=== PATIENT | female | born 1945 | race Caucasian/White ===

== ENCOUNTER 2018-01-15 05:21 | Inpatient (IN) | payer OTHER, MEDICARE ==
[~2018-01-15] VITALS: Ht 167.6 cm; Wt 65.7 kg
[~2018-01-15 05:21] MED LIST: ADVA250A INH; ALBU0.63 NEB; FENO160T PO; LISI40TA PO; LOVA40TA PO; METO1TAB43 PO; OXYGENDME NAS.CANULA; PHILCAP2 PO; TEMA30CA PO; WHEA1POW9
[2018-01-15] MEDS ORDERED: LACTATED RINGER'S 1000 ML IV PRN (06:00)
[2018-01-15] MEDS ORDERED: VANCOMYCIN 1 GM/200 ML PREMIX ON-CALL IV SCH (06:00)
[2018-01-15] MEDS ORDERED: SODIUM CHLORID 0.9% 500 ML IV PRN (06:00)
[2018-01-15] MEDS ORDERED: INSULIN HUMAN REGULAR 1,000 UNITS/10 ML VIAL SQ PRN (06:00)
[2018-01-15] MEDS ORDERED: ceFAZolin 2 GM PREMIX 50 ML IV SCH (06:00)
[2018-01-15] MEDS ORDERED: POVIDONE IODINE 5% (ANTISEPSIS KIT) 4 APPLICATIONS EACH NARE PRN (06:00)
[2018-01-15] MEDS ORDERED: CHLORHEXIDINE GLUCONATE 4% SOLN 120 ML BTL TOPICAL SCH (06:00)
[2018-01-15] MEDS ORDERED: CHLORHEXIDINE GLUCONATE 2 % 1 PACK (2 CLOTHS) TOPICAL PRN (06:00)
[2018-01-15] MEDS ORDERED: ceFAZolin INJ 1,000 MG VIAL ONE (06:25)
[2018-01-15] MEDS ORDERED: BUPIVACAINE PF 0.75% DEX-WATER INJ 2 ML AMP ONE (07:12)
--- NOTE | 2018-01-15 07:27 | MH ---
cc: Melissa Moss MD, J Richard R MD DATE OF ADMISSION: 01/15/2018 DATE OF ADMISSION FOR SURGERY: 01/15/2018 ADMITTING DIAGNOSIS: Osteoarthritic degeneration, left hip, now being admitted for a left total hip arthroplasty. HISTORY OF PRESENT ILLNESS A pleasant 72-year-old female is being admitted today for left total hip arthroplasty with severe painful osteoarthritic degeneration, left hip. PAST MEDICAL HISTORY: She recently underwent radiation for lung cancer. Otherwise, the patient has a history of anxiety, chronic kidney disease, stage II, COPD, hypoxemia. CURRENT MEDICATIONS: 1. Temazepam. 2. Zofran. 3. Metoprolol. 4. Lovastatin. 5. Lisinopril. 6. Fenofibrate 7. Effexor. PAST SURGICAL HISTORY: Right total knee arthroplasty. REVIEW OF SYSTEMS: Noncontributory. FAMILY HISTORY: Noncontributory. She was a smoker, nondrinker. ALLERGIES: NO KNOWN ALLERGIES PHYSICAL EXAMINATION: GENERAL: We find a 72-year-old female, well developed, well nourished, alert and oriented x3 complaining of pain in her left hip. VITAL SIGNS: Blood pressure 126/70, pulse 88 and regular, respirations 18, temp 98.2, pulse ox is 97% on room air. HEENT: Eyes PERRLA. EOMI. Ears, nose, mouth clear. NECK: Supple. LUNGS: Clear. HEART: Regular rate. ABDOMEN: Soft, positive bowel sounds, nontender. EXTREMITIES: Reveal the left hip to have decreased range of motion. She is neurovascularly intact to her toes. She is tender under her left rib cage where she states she was coughing. X-rays were done which did not reveal a fracture. IMPRESSION: Severe osteoarthritic degeneration, left hip. PLAN: Admission for left total hip arthroplasty today. The patient was given prescription for postoperative pain and anticoagulation control in the office. Plans to go into rehab after surgical stay in the hospital. MD JOSE ALFREDO Vieira//bridgett , 04:47 PM , 05:05 PM
[2018-01-15] MEDS ORDERED: TEMAZEPAM 15 MG CAP PO PRN ×2 (07:30)
[2018-01-15] MEDS ORDERED: ONDANSETRON HCL 4 MG/2 ML VIAL IVP PRN (07:30)
[2018-01-15] MEDS ORDERED: WHEAT DEXTRIN PRN (07:30)
[2018-01-15] MEDS ORDERED: ACETAMINOPHEN/HYDROcodone 325 MG/7.5 MG TAB PO PRN (07:30)
[2018-01-15] MEDS ORDERED: MISCELLANEOUS NURSING INFORMATION XX PRN (07:30)
[2018-01-15] MEDS ORDERED: TRANEXAMIC ACID IV SCH ×2 (07:30→10:30)
[2018-01-15] MEDS ORDERED: ACETAMINOPHEN 325 MG TAB PO PRN (07:30)
[2018-01-15] MEDS ORDERED: MAGNESIUM HYDROXIDE SUSP 30 ML CUP PO PRN (07:30)
[2018-01-15] MEDS ORDERED: MORPHINE SULFATE 8 MG/ML INJ IV PUSH PRN (07:30)
[2018-01-15] MEDS ORDERED: BISACODYL 10 MG SUPP RECTAL PRN (07:30)
[2018-01-15] MEDS ORDERED: RESP: ALBUTEROL 0.63 MG/3 ML NEB (PRN) NEB (07:30)
[2018-01-15] MEDS ORDERED: BUPIVACAINE LIPOSO PF 1.3% INJ 20 ML, BUPIVACAINE PF 0.25% INJ 20 ML in SODIUM CHLORIDE... P-ARTICULR SCH (07:30)
[2018-01-15] MEDS ORDERED: TRANEXAMIC ACID INJ 0 MG in SODIUM CHLORIDE 0.9% INJ 100 ML IV SCH (07:30)
[2018-01-15] MEDS ORDERED: SODIUM CHLORIDE 0.9% IV SCH ×2 (07:30→10:30)
[2018-01-15] MEDS ORDERED: NALOXONE HCL 0.4 MG/ML AMP IV PUSH PRN (07:30)
[2018-01-15] MEDS ORDERED: PROPOFOL 500 MG/50 ML INJ 50 ML ONE (07:33)
[2018-01-15] MEDS ORDERED: WALKER WHEELS/F1 MIS (07:35)
--- NOTE | 2018-01-15 07:35 | HHI.FF ---
Face to Face Verification Diagnosis: (1) Status post total hip replacement, left Physical Therapy Gait training Hip: Total hip, Protocol: Left, Posterior hip precautions, Abduction pillow while in bed, Progress to weight bearing Canvas Knee Splint: When in bed & 2 pillows btw thighs Nursing RN: 3 days/week x 2 weeks I have seen patient Bing Finnegan on 01/15/18. My clinical findings support the need for the requested home health care services because: Limited ability to care for self High risk of falls I certify that my clinical findings support that this patient is homebound because: Unsteady gait/balance Melissa Moss MD Jan 15, 2018 07:35
[2018-01-15] MEDS ORDERED: ADJUSTABLE COMM1 MIS (07:36)
[2018-01-15] MEDS ORDERED: PROBIOTIC PRODUCT PO SCH (09:00)
[2018-01-15] MEDS ORDERED: cloNIDine HCL 0.1 MG TAB PO PRN (09:15)
[2018-01-15] MEDS ORDERED: Post-op Orders (for Pharmacy) XX ONE (09:55)
[2018-01-15] MEDS ORDERED: DO NOT ADM ANY ANTICOAGULANT DRUGS PRN (09:55)
--- NOTE | 2018-01-15 09:59 | MP ---
cc: Melissa Moss MD DATE OF OPERATION: DATE OF SURGERY: 01/15/2018 PREOPERATIVE DIAGNOSIS: Osteoarthritic degeneration, left hip. POSTOPERATIVE DIAGNOSIS: Osteoarthritic degeneration, left hip. SURGERY PERFORMED: Left total hip arthroplasty using Aesculap components, size 13 femur with standard neck and size 36 short ceramic head with a 36 E-liner, 52 cup and no cement utilized. SURGEON: Saulo Moss MD CHILD AND FAMILY THERAPIST(S): NEETA Aguero. ANESTHESIA: Spinal and 60 mL of Exparel for extra pain control. OPERATIVE PROCEDURE: The patient was brought to the Operating Room, where after successful induction of spinal anesthesia was placed on the operating room table in the right lateral decubitus position. The left hip, thigh and leg were prepped and draped in the usual manner. A posterolateral approach was then utilized by making an incision over the proximal portion of the femur lateral aspect, carried across the greater trochanter, carried posterior in a curved incision toward the buttock. The incision was carried down through the subcutaneous tissue, through the fibers of the tensor fascia live and gluteus lopez to expose the greater trochanteric bursa. This was then removed by sharp and blunt dissection. The hip was then internally rotated to expose the insertions of the short external rotators of the hip and were incised at their insertion into the greater trochanter and reflected posterior to protect the sciatic nerve. These were held with a Charnley retractor to better visualize the hip joint. The capsule was identified and removed by sharp dissection. The hip was then dislocated by internal rotation and flexion of the hip. The femoral calcar was then measured using the trial components for the appropriate length cut of the neck using an oscillating saw. After the cut was made the head was removed. The acetabulum was then approached and measured, the acetabulum reamed with the acetabular reamers. Next, the femoral calcar was approached by first inserting a canal finder followed by rigid reamers, followed by a cookie-cutter to the appropriate size, in this case being a #15. The broach was left in place and a planer used to plane the calcar to a smooth finish. The broach was then removed. The trial components were then inserted into place, the hip reduced, found to track smoothly with no evidence of subluxation or dislocation. All trial components were removed. The wound was irrigated copiously with antibiotic solution and Water Pik. The actual components were then inserted and impacted into place using Aesculap components, size 13 femur with standard neck and size 36 short ceramic head with a 36 E-liner, 52 cup and no cement utilized. The hip was reduced, found to track smoothly with no evidence of subluxation or dislocation. 60 cc of the mixture of Exparel, normal saline and 0.25% Marcaine plain were injected around the anterior hip joint, away from the sciatic nerve which was identified and protected throughout the procedure. The wound was irrigated copiously with antibiotic solution, meticulous hemostasis achieved. The capsule was then approximated using interrupted #1 Vicryl suture. The deep fascia was approximated with a running #2 Quill, the subcutaneous tissue approximated using interrupted and running 2-0 and 4-0 Monocryl suture and Prineo dressing applied to the wound followed by abduction pillow, brace and knee immobilizer. Estimated blood loss was 300 mL. No drain utilized. Sponge and suture counts were correct. The patient tolerated the procedure well and left the Operating Room in satisfactory condition. NEETA Aguero, was present during the entire procedure to include patient positioning and the procedure. The medical necessity of the nurse practitioner cutter first was indicated in this case due to the surgical complexity of the case itself and during the surgical case the surgical dressing maker was working at the back table while my surgical endoscopist NEETA was directly assisting me. MD JOSE ALFREDO Vieira/ANDRE , 09:34 AM , 09:57 AM
[2018-01-15] MEDS ORDERED: MIDAZOLAM HCL 2 MG/2 ML VIAL ONE (10:02)
[2018-01-15] MEDS ORDERED: *RESP: ALBUTEROL 2.5 MG/3 ML NEB (PRN) PERIprocedural Use ONLY NEB ONE (10:09)
[2018-01-15] MEDS ORDERED: *MEPERIDINE 25 MG INJ VIAL PERIprocedural Use ONLY ONE (10:20)
[2018-01-15] MEDS: LACTATED RINGER'S 1000 ML INJ 1,000 ML IV SCH ×2 (11:00→20:38)
--- NOTE | 2018-01-15 11:03 | RADRPT ---
EXAM DATE/TIME: 01/15/2018 10:11 [facility] COMPARISON: No previous studies available for comparison. INDICATIONS : Post op left hip surgery. MEDICAL HISTORY : None. SURGICAL HISTORY : None. ENCOUNTER: Initial ACUITY: 1 day PAIN SCORE: Non-responsive. LOCATION: Left hip FINDINGS: The patient is status post a total hip arthroplasty with a bipolar prosthesis. Prosthesis is well-sea frank. Alignment is anatomic. A fracture is not appreciated. CONCLUSION: Anatomic alignment. Adeel Steele MD FACR Board Certified Radiologist. This report was verified electronically.
--- NOTE | 2018-01-15 11:35 | HHI.PR ---
Immediate Post Op Note Procedure Date: Jan 15, 2018 Pre Op Diagnosis: Osteoarthritic degeneration, left hip Post Op Diagnosis: Osteoarthritic degeneration, left hip Surgeon: Saulo Moss MD Ed Physicians(s): Violeta SANTACRUZ Procedure: Left Total Hip Arthroplasty Complications: none Specimen(s) removed: Left femoral head Estimated blood loss: 300cc Anesthesia: General Drains: None IVF Urinary Output (mLs): 0 (No carrillo) Tourniquet time (min at mmHg) none Patient to: PACU Patient Condition: Good Implant/Devices: SEE IMPLANT LOG (if applicable) Date/Time of Procedure: SEE SURGICAL CARE RECORD Violeta Valdez Jan 15, 2018 11:35
[2018-01-15] MEDS ORDERED: PHENYLEPHRINE HCL 10 MG/ML VIAL IV ONE (12:00)
[2018-01-15] MEDS ORDERED: LACTATED RINGER'S 1000 ML INJ 1,000 ML IV ONE (12:00)
[2018-01-15] MEDS ORDERED: PHENYLEPH/NS 1000 MCG/10 ML SYR IV ONE (12:00)
[2018-01-15] MEDS ORDERED: NORMOSOL R INJ 1,000 ML IV ONE (12:00)
[2018-01-15] MEDS ORDERED: PROPOFOL 200 MG/20 ML AMP IV ONE (12:00)
[2018-01-15] MEDS ORDERED: LIDOCAINE HCL 1% PF 5 ML SYRINGE OTHER ONE (12:00)
[2018-01-15 13:15] VITALS: BP 101/53; PULSE 72; RESP 19; TEMP 97.7; O2SAT 96
[2018-01-15] MEDS: FENOFIBRATE 145 MG TAB PO SCH (13:19)
[2018-01-15] MEDS: ACETAMINOPHEN/HYDROcodone 325 MG/7.5 MG TAB PO PRN ×3 (13:19→21:51)
[2018-01-15 16:00] VITALS: BP 93/50; PULSE 76; RESP 19; TEMP 97.8; O2SAT 95
--- NOTE | 2018-01-15 16:58 | PD.CONS ---
HPI Service [facility] Consult Requested By TIFFANY TELLEZ MD Reason for Consult MEDICAL MANAGEMENT Primary Care Physician Bridger Yap M.D. Diagnoses: History of Present Illness Patient is a 72-year-old female, Who underwent a left total hip arthroplasty for severe painful osteoarthritic degenerative disease of the left hip. Patient has an extensive past medical history including lung cancer for which he underwent radiation as well as anxiety, chronic kidney disease stage II, COPD and hypoxemia. Also hypertension and hyperlipidemia and depression We have been asked to help regarding medical management throughout the admission We will check labs and be available for any other issues that may arise Review of Systems Constitutional: DENIES: Diaphoretic episodes, Fatigue, Fever, Weight gain, Weight loss, Chills, Dizziness, Change in appetite, Night Sweats Endocrine: DENIES: Abnorml menstrual pattern, Heat/cold intolerance, Polydipsia , Polyuria, Polyphagia Eyes: DENIES: Blurred vision, Diplopia, Eye inflammation, Eye pain, Vision loss , Photosensitivity, Double Vision Ears, nose, mouth, throat: DENIES: Tinnitus, Hearing loss, Vertigo, Nasal discharge, Oral lesions, Throat pain, Hoarseness, Ear Pain, Running Nose, Epistaxis, Sinus Pain, Toothache Respiratory: COMPLAINS OF: Cough, Shortness of breath, DENIES: Apneas, Snoring , Wheezing, Hemoptysis, Sputum production Cardiovascular: DENIES: Chest pain, Palpitations, Syncope, Dyspnea on Exertion , PND, Lower Extremity Edema, Orthopnea, Claudication Gastrointestinal: DENIES: Abdominal pain, Black stools, Bloody stools, Constipation, Diarrhea, Nausea, Vomiting Genitourinary: DENIES: Abnormal vaginal bleeding, Dysmenorrhea, Dyspareunia, Sexual dysfunction Musculoskeletal: COMPLAINS OF: Joint pain, Muscle aches, Stiffness, Back pain, DENIES: Joint Swelling, Neck pain Integumentary: COMPLAINS OF: Nail changes, DENIES: Abnormal pigmentation, Pruritus, Rash, Breast masses, Breast skin changes, Nipple discharge Hematologic/lymphatic: DENIES: Bruising, Lymphadenopathy Immunologic/allergic: DENIES: Eczema, Urticaria Neurologic: COMPLAINS OF: Abnormal gait, Poor Balance, DENIES: Headache, Localized weakness, Paresthesias, Seizures, Speech Problems, Tremor Psychiatric: COMPLAINS OF: Anxiety, Depression, DENIES: Confusion, Mood changes , Hallucinations, Agitation Except as stated in HPI: all other systems reviewed are Neg Past Family Social History Allergies: Coded Allergies: No Known Allergies (Unverified Allergy, Unknown, 01/15/18) Past Medical History Left lung cancer treated with radiation Anxiety Chronic kidney disease stage II COPD on chronic oxygen Hypoxemia Hypertension Hyperlipidemia Depression anxiety Coronary artery disease Hearing loss but does wear hearing aids COPD and emphysema GERD Past Surgical History History of right total knee arthroplasty History of D&C Breast augmentation Right hip replacement Right knee replacement Reported Medications Reported Meds & Active Scripts Active Reported Albuterol Neb (Albuterol Sulfate) 0.63 Mg/3 Ml Neb 0.63 Mg NEB Q6HR NEB PRN Advair Diskus Inh (Fluticasone-Salmeterol Inh) 250-50 Mcg/Blist Aer 1 Puff INH BID Rinse mouth after use. Oxygen (O2) Device Liter [id number].[email or web address] HS Oxygen Concentrator Portable Gaseous 2 L/min via Nasal Canula Continuous For 99 months Benefiber (Wheat Dextrin) 3 Gram/3.8 Gram Powder 1 Packet DAILY PRN Kreyonic (Probiotic Product) 1.5 Billion Cell Cap 1 Cap PO DAILY Metoprolol Succinate ER 24 HR (Metoprolol Succinate) 100 Mg Tab 100 Mg PO DAILY Fenofibrate 160 Mg Tab 160 Mg PO DAILY Lisinopril 40 Mg Tab 40 Mg PO DAILY Lovastatin 40 Mg Tab 40 Mg PO HS Temazepam 30 Mg Cap 30 Mg PO HS PRN Active Ordered Medications Current Medications Lactated Ringer's 1,000 ml @ 30 mls/hr Q24H PRN IV SEE LABEL COMMENTS Last administered on 01/15/18at 06:31; Start 01/15/18 at 06:00; Stop 01/15/18 at 10:51 ; Status DC Sodium Chloride 500 ml @ 30 mls/hr [id number] PRN IV SEE LABEL COMMENTS; Start at 06:00; Stop 01/15/18 at 10:51; Status DC Povidone Iodine (Betadine 5% Antisepsis Kit) 1 applic TAX APPRAISER PRN EACH NARE SEE LABEL COMMENTS Last administered on 01/15/18at 06:31; Start 01/15/18 at 06:00 ; Stop 01/18/18 at 05:59 Chlorhexidine Gluconate (Chlorhexidine 2% Cloth) 3 pack TAX APPRAISER PRN TOPICAL SEE LABEL COMMENTS Last administered on 01/15/18at 06:31; Start 01/15/18 at 06:00 ; Stop 01/18/18 at 05:59 Insulin Human Regular (NovoLIN R INJ) See Protocol Table ... TAX APPRAISER PRN SQ SEE PROTOCOL TABLE; Start 01/15/18 at 06:00; Stop 01/18/18 at 05:59 Chlorhexidine Gluconate (Hibiclens 4% Top Soln) 1 applic ONCE TOPICAL Last administered on 01/15/18at 06:31; Start 01/15/18 at 06:00; Stop 01/18/18 at 05:59 Cefazolin Sodium/ Dextrose 50 ml @ 100 mls/hr TAX APPRAISER IV Last administered on 01/15/18at 08:21; Start 01/15/18 at 06:00; Stop 01/15/18 at 10:52; Status DC Tranexamic Acid 657 mg/Sodium Chloride 106.57 ml @ 200 mls/ hr ONCE IV Last administered on 01/15/18at 08:22; Start 01/15/18 at 07:30; Stop 01/16/18 at 13:30 Tranexamic Acid 657 mg/Sodium Chloride 106.57 ml @ 200 mls/ hr ONCE IV Last administered on 01/15/18at 11:25; Start 01/15/18 at 10:30; Stop 01/15/18 at 11:30 ; Status DC Vancomycin/Sodium Chloride 200 ml @ 200 mls/hr TAX APPRAISER IV Last administered on 01/15/18at 06:57; Start 01/15/18 at 06:00; Stop 01/18/18 at 05:59 Bupivacaine Liposome 20 ml/ Bupivacaine HCl 20 ml/Sodium Chloride 120 ml @ 240 mls/hr ONCE P-ARTICULR Last administered on 01/15/18at 09:11; Start 01/15/18 at 07:30; Stop 01/15/18 at 13:30; Status DC Cefazolin Sodium (Ancef Inj) 2,000 mg STK-MED ONCE .ROUTE Last administered on 01/15/18at 08:17; Start 01/15/18 at 06:25; Stop 01/15/18 at 06:26; Status DC Bupivacaine HCl/ Dextrose (Marcaine Spinal Inj) 2 ml STK-MED ONCE .ROUTE ; Start 01/15/18 at 07:12; Stop 01/15/18 at 07:13; Status DC Albuterol Sulfate (Albuterol Neb) 0.63 mg Q6HR NEB PRN NEB SHORTNESS OF BREATH ; Start 01/15/18 at 07:30 Pravastatin Sodium (Pravachol) 40 mg HS PO ; Start 01/15/18 at 21:00 Temazepam (Restoril) 30 mg HS PRN PO INSOMNIA; Start 01/15/18 at 07:30; Stop at 08:34; Status DC Fenofibrate (Tricor) 145 mg DAILY PO Last administered on 01/15/18at 13:19; Start 01/15/18 at 13:00 Budesonide/ Formoterol Fumarate (Symbicort 160-4.5 Mcg Inh) 2 puff BID INH ; Start 01/15/18 at 21:00 Lisinopril (Prinivil) 40 mg DAILY PO ; Start 01/16/18 at 09:00 Metoprolol Succinate (Toprol Xl) 100 mg DAILY PO ; Start 01/16/18 at 09:00 Non-Formulary Medication 1 cap DAILY PO ; Start 01/15/18 at 09:00; Stop at 09:00; Status DC Non-Formulary Medication 1 packet DAILY PRN .ROUTE CONSTIPATION; Start at 07:30; Stop 01/15/18 at 08:35; Status DC Lactated Ringer's 1,000 ml @ 80 mls/hr [id number] IV Last administered on at 11:00; Start 01/15/18 at 11:00 Cefazolin Sodium 1000 mg/Sodium Chloride 100 ml @ 200 mls/hr Q6H IV Last administered on 01/15/18at 14:50; Start 01/15/18 at 14:00; Stop 01/16/18 at 02:29 Miscellaneous Information (Post-op Orders (for Pharmacy)) STAT ONCE XX ; Start 01/15/18 at 09:55; Stop 01/15/18 at 10:46; Status DC Miscellaneous Information UNSCH PRN XX SEE LABEL COMMENTS; Start 01/15/18 at 07:30 Morphine Sulfate (Morphine Inj) 5 mg Q3H PRN IV PUSH Pain >7 when off COMMUNITY MUSIC THERAPIST; Start 01/15/18 at 07:30 Acetaminophen/ Hydrocodone Bitart ([place] 7.5-325 Mg) 1 tab Q4H PRN PO PAIN LESS THAN 5 ON SCALE Last administered on 01/15/18at 13:19; Start 01/15/18 at 07: 30 Acetaminophen/ Hydrocodone Bitart ([place] 7.5-325 Mg) 2 tab Q4H PRN PO PAIN SCALE 5 TO 10; Start 01/15/18 at 07:30 Acetaminophen (Tylenol) 650 mg Q6H PRN PO FEVER; Start 01/15/18 at 07:30 Tranexamic Acid / Sodium Chloride 100 ml @ 200 mls/hr UNSCH IV ; Start at 07:30; Stop 01/15/18 at 08:57; Status DC Multivitamins/ Minerals Therapeutic (Theragran M Tab) 1 tab BID PO ; Start 01/16 at 21:00; Stop 03/17/18 at 20:59 Ondansetron HCl (Zofran Inj) 4 mg Q6H PRN IVP NAUSEA OR VOMITING; Start at 07:30 Docusate Sodium (Colace) 100 mg BID PO ; Start 01/16/18 at 21:00 Temazepam (Restoril) 15 mg HS PRN PO SLEEP; Start 01/15/18 at 07:30 Bisacodyl (Dulcolax Supp) 10 mg DAILY PRN RECTAL SEVERE CONSTIPATION; Start at 07:30 Magnesium Hydroxide (Milk Of Magnesia Liq) 30 ml DAILY PRN PO MILD CONSTIPATION ; Start 01/15/18 at 07:30 Naloxone HCl (Narcan Inj) 0.4 mg UNSCH PRN IV PUSH RESPIRATORY RATE LESS THAN 10; Start 01/15/18 at 07:30 Apixaban (Eliquis) 2.5 mg BID PO ; Start 01/16/18 at 09:00 Propofol 50 ml @ As Directed STK-MED ONCE .ROUTE ; Start 01/15/18 at 07:33; Stop 01/15/18 at 07:34; Status DC Clonidine (Catapres) 0.1 mg Q4H PRN PO SBP>160, DBP>90; Start 01/15/18 at 09:15 Fentanyl Citrate (fentaNYL INJ) 100 mcg STK-MED ONCE .ROUTE ; Start 01/15/18 at 10:02; Stop 01/15/18 at 10:03; Status DC Midazolam HCl (Versed Inj) 2 mg STK-MED ONCE .ROUTE ; Start 01/15/18 at 10:02; Stop 01/15/18 at 10:03; Status DC Albuterol Sulfate (*ALBUTEROL NEB PERIprocedure ONLY) 2.5 mg STK-MED ONCE NEB Last administered on 01/15/18at 10:12; Start 01/15/18 at 10:09; Stop 01/15/18 at 10:10; Status DC Meperidine HCl (*DEMEROL INJ PERIprocedural ONLY) 25 mg STK-MED ONCE .ROUTE Last administered on 01/15/18at 10:20; Start 01/15/18 at 10:20; Stop 01/15/18 at 10:21; Status DC Miscellaneous Information ALL NURSING DEPARTME... UNSCH PRN .XX SEE LABEL COMMENTS; Start 01/15/18 at 09:55; Stop 01/16/18 at 09:54 Family History Lung disorders and hypertension Social History History of tobacco abuse extensive with COPD Denies any illicits Denies any alcohol Physical Exam Vital Signs Vital Signs Date Time Temp Pulse Resp B/P (MAP) Pulse Ox O2 Delivery O2 Flow Rate FiO2 01/15/18 13:15 97.7 72 19 101/53 (69) 96 01/15/18 11:15 67 14 106/55 (72) 94 Nasal Cannula 3 01/15/18 11:15 97.2 01/15/18 11:00 97.2 58 16 105/52 (69) 92 Nasal Cannula 3 01/15/18 10:45 55 14 113/56 (75) 98 Nasal Cannula 3 01/15/18 10:30 56 15 107/53 (71) 90 Nasal Cannula 3 01/15/18 10:20 97.1 01/15/18 10:15 67 14 117/85 (96) 96 Aerosol Mask 01/15/18 10:00 69 16 109/64 (79) 98 Simple Mask 6 01/15/18 09:57 97.1 68 22 102/53 (69) 100 Simple Mask 6 01/15/18 06:19 98.2 74 18 131/62 (85) 98 Physical Exam GENERAL: This is a well-nourished, well-developed patient, in no apparent distress. Seen sitting in the chair SKIN: No rashes, ecchymoses or lesions. Cool and dry. HEAD: Atraumatic. Normocephalic. No temporal or scalp tenderness. EYES: Pupils equal round and reactive. Extraocular motions intact. No scleral icterus. No injection or drainage. ENT: Nose without bleeding, purulent drainage or septal hematoma. Throat without erythema, tonsillar hypertrophy or exudate. Uvula midline. Airway patent. NECK: Trachea midline. No JVD or lymphadenopathy. Supple, nontender, no meningeal signs. CARDIOVASCULAR: Regular rate and rhythm without murmurs, gallops, or rubs. RESPIRATORY: Clear to auscultation. Breath sounds equal bilaterally. No wheezes , rales, or rhonchi. Decreased breath sounds bilaterally GASTROINTESTINAL: Abdomen soft, non-tender, nondistended. No hepato-splenomegaly , or palpable masses. No guarding. MUSCULOSKELETAL: Extremities without clubbing, cyanosis, or edema. No joint tenderness, effusion, or edema noted. No calf tenderness. Negative Homans sign bilaterally. Has an A-frame shape pillow strap to her legs NEUROLOGICAL: Awake and alert. Cranial nerves II through XII intact. Motor and sensory grossly within normal limits. 4 out of 5 muscle strength in all muscle groups. Normal speech. Insight and judgment is good Mood and behavior is appropriate Imaging Last Impressions Hip X-Ray 01/15/18 0729 Signed Impressions: Service Date/Time: Monday, January 15, 2018 10:11 - CONCLUSION: Anatomic alignment. Adeel Steele MD Assessment and Plan Problem List: (1) Status post total hip replacement, left ICD Code: Z96.642 - Presence of left artificial hip joint (2) History of lung cancer ICD Code: Z85.118 - Personal history of other malignant neoplasm of bronchus and lung (3) Osteoarthritis of left hip ICD Code: M16.12 - Unilateral primary osteoarthritis, left hip Assessment and Plan Status post left total hip replacement for severe osteoarthritis will defer to orthopedics for pain control and to them for anticoagulation COPD continue on oxygen and nebulized treatments depression and anxiety resume home medications Hypertension resume home medications Hyperlipidemia resume home medications Constipation make sure she has medications for bowel We will check a.m. labs We will defer anticoagulation to orthopedics Continue on Pepcid for GI profile Code Status Full code Discussed Condition With RN and patient Adeel Castro DO Jan 15, 2018 16:58
--- NOTE | 2018-01-15 17:22 | EKG ---
Date Performed: 01/15/2018 Time Performed: 06:29:31 PTAGE: 72 years EKG: Sinus rhythm NONSPECIFIC ST & T-WAVE ABNORMALITY Compared to previous tracing, nonspecific ST and T wave changes are now present BORDERLINE ECG PREVIOUS TRACING : 12/22/1999 15.15 DOCTOR: Moy Bahena Interpretating Date/Time 01/15/2018 17:21:47
[2018-01-15 19:35] VITALS: O2SAT 93
[2018-01-15 20:17] VITALS: BP 109/55; PULSE 85; RESP 18; TEMP 99.1; O2SAT 97
[2018-01-15] MEDS: FAMOTIDINE 20 MG TAB PO SCH (20:38)
[2018-01-15] MEDS: PRAVASTATIN SOD 40 MG TAB PO SCH (20:39)
[2018-01-15] MEDS: BUDESONIDE-FORMOTEROL 160/4.5 MCG INHALER INH SCH (20:40)
[2018-01-15 23:34] VITALS: BP 94/41; PULSE 85; RESP 17; TEMP 98.9; O2SAT 96
[2018-01-16 07:04] LABS: AUTOMATED NEUTROPHIL # 5.9 TH/MM3 (1.8-7.7); BASOPHIL % 0.3 % (0.0-2.0); EOSINOPHIL % 0.5 % (0.0-4.0); HEMATOCRIT 28.9 % (35.0-46.0); HEMOGLOBIN 9.8 GM/DL (11.6-15.3); LYMPH % 8.9 % (9.0-44.0); LYMPHOCYTE # 0.6 TH/MM3 (1.0-4.8); MEAN CELL VOLUME 86.2 FL (80.0-100.0); MEAN CORPUSCULAR HEMOGLOBIN 29.3 PG (27.0-34.0); MEAN PLATELET VOLUME 9.1 FL (7.0-11.0); MONO % 9.2 % (0.0-8.0); MONOCYTE # 0.7 TH/MM3 (0-0.9); NEUT % 81.1 % (16.0-70.0); PLATELET COUNT 154 TH/MM3 (150-450); RED BLOOD COUNT 3.35 MIL/MM3 (4.00-5.30); RED CELL DISTRIBUTION WIDTH 12.6 % (11.6-17.2); WHITE BLOOD COUNT 7.2 TH/MM3 (4.0-11.0)
[2018-01-16 07:25] LABS: ALBUMIN 2.7 GM/DL (3.4-5.0); AST (GOT) 15 U/L (15-37); BICARBONATE 27.5 MEQ/L (21.0-32.0); BLOOD UREA NITROGEN 13 MG/DL (7-18); CALCIUM 8.8 MG/DL (8.5-10.1); CHLORIDE 104 MEQ/L (98-107); GLOMERULAR FILTRATION RATE 62 ML/MIN (>89); GLUCOSE,RANDOM 128 MG/DL (74-106); MAGNESIUM 1.8 MG/DL (1.5-2.5); SODIUM (NA) 139 MEQ/L (136-145)
[2018-01-16 07:35] LABS: ALKALINE PHOSPHATASE 34 U/L (45-117); ALT (GPT) 10 U/L (10-53); FREE T4 1.08 NG/DL (0.76-1.46); PHOSPHORUS 2.6 MG/DL (2.5-4.9); TOTAL BILIRUBIN ADULT 0.4 MG/DL (0.2-1.0); TOTAL PROTEIN 5.3 GM/DL (6.4-8.2)
[2018-01-16 08:00] VITALS: BP 120/58; PULSE 98; RESP 17; TEMP 99.8; O2SAT 92
[2018-01-16] MEDS: APIXABAN 2.5 MG TABLET PO SCH ×2 (08:45→20:01)
[2018-01-16] MEDS: FAMOTIDINE 20 MG TAB PO SCH ×2 (08:45→20:02)
[2018-01-16] MEDS: FENOFIBRATE 145 MG TAB PO SCH (08:45)
[2018-01-16] MEDS: BUDESONIDE-FORMOTEROL 160/4.5 MCG INHALER INH SCH ×2 (08:47→20:03)
[2018-01-16] MEDS: LISINOPRIL 20 MG TAB PO SCH (08:48)
[2018-01-16] MEDS: METOPROLOL SUCCINATE 50 MG EXTENDED RELEASE TAB PO SCH (08:48)
[2018-01-16 09:05] VITALS: O2SAT 97
[2018-01-16 11:02] LABS: HEMOGLOBIN A1C 5.4 % (4.3-6.0)
--- NOTE | 2018-01-16 11:26 | PD.ORT.PN ---
Subjective Subjective Remarks Pt complaining of nausea from pain meds. Not much pain at present. Objective Vitals Vital Signs Date Time Temp Pulse Resp B/P (MAP) Pulse Ox O2 Delivery O2 Flow Rate FiO2 01/16/18 09:05 97 Nasal Cannula 2.00 01/16/18 08:00 99.8 98 17 120/58 (78) 92 01/15/18 23:34 98.9 85 17 94/41 (58) 96 01/15/18 20:17 99.1 85 18 109/55 (73) 97 01/15/18 19:35 93 Nasal Cannula 3.00 01/15/18 16:00 97.8 76 19 93/50 (64) 95 01/15/18 13:15 97.7 72 19 101/53 (69) 96 I/O 01/15/18 01/15/18 01/15/18 01/16/18 01/16/18 01/16/18 07:00 15:00 23:00 07:00 15:00 23:00 Intake Total 1500 ml 1340 ml 100 ml 480 ml Output Total 3300 ml Balance -1800 ml 1340 ml 100 ml 480 ml Intake Oral 240 ml 480 ml IV Total 1500 ml 1100 ml 100 ml Output Estimated Blood Loss 300 ml Other 3000 ml # Voids 5 1 # Bowel Movements 0 Result Diagram: 01/16/18 0625 01/16/18 0625 Imaging Last 48 hours Impressions Hip X-Ray 01/15/18 0729 Signed Impressions: Service Date/Time: Monday, January 15, 2018 10:11 - CONCLUSION: Anatomic alignment. Adeel Steele MD Objective Remarks Sitting up in chair. NV intact to toes. No calf tenderness. Assessment & Plan Ortho Post Op Day #: 1 Problem List: Assessment and Plan Med management for nausea. Cont PT WB to tolerance. SNF soon. Melissa Moss MD Jan 16, 2018 11:26
[2018-01-16] MEDS: LACTATED RINGER'S 1000 ML INJ 1,000 ML IV SCH (11:29)
--- NOTE | 2018-01-16 11:45 | HHI.PR ---
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 Patient has an extensive past medical history including lung cancer for which he underwent radiation as well as anxiety, chronic kidney disease stage II, COPD and hypoxemia. Also hypertension and hyperlipidemia and depression We have been asked to help regarding medical management throughout the admission We will check labs and be available for any other issues that may arise 01-16 SEEN IN ROOM DW CM AND RN AND PT WORKING WITH PT TODAY NO NEW COMPLAINTS HAS SOME PAIN AM LABS DW DR TELLEZ Objective Vitals Vital Signs Date Time Temp Pulse Resp B/P (MAP) Pulse Ox O2 Delivery O2 Flow Rate FiO2 01/16/18 09:05 97 Nasal Cannula 2.00 01/16/18 08:00 99.8 98 17 120/58 (78) 92 01/15/18 23:34 98.9 85 17 94/41 (58) 96 01/15/18 20:17 99.1 85 18 109/55 (73) 97 01/15/18 19:35 93 Nasal Cannula 3.00 01/15/18 16:00 97.8 76 19 93/50 (64) 95 01/15/18 13:15 97.7 72 19 101/53 (69) 96 I/O 01/15/18 01/15/18 01/15/18 01/16/18 01/16/18 01/16/18 07:00 15:00 23:00 07:00 15:00 23:00 Intake Total 1500 ml 1340 ml 100 ml 480 ml Output Total 3300 ml Balance -1800 ml 1340 ml 100 ml 480 ml Intake Oral 240 ml 480 ml IV Total 1500 ml 1100 ml 100 ml Output Estimated Blood Loss 300 ml Other 3000 ml # Voids 5 1 # Bowel Movements 0 Result Diagram: 01/16/18 0625 01/16/18 0625 Other Results Laboratory Tests Test 01/16/18 06:25 White Blood Count 7.2 TH/MM3 Red Blood Count 3.35 MIL/MM3 Hemoglobin 9.8 GM/DL Hematocrit 28.9 % Mean Corpuscular Volume 86.2 FL Mean Corpuscular Hemoglobin 29.3 PG Mean Corpuscular Hemoglobin Concent 34.0 % Red Cell Distribution Width 12.6 % Platelet Count 154 TH/MM3 Mean Platelet Volume 9.1 FL Neutrophils (%) (Auto) 81.1 % Lymphocytes (%) (Auto) 8.9 % Monocytes (%) (Auto) 9.2 % Eosinophils (%) (Auto) 0.5 % Basophils (%) (Auto) 0.3 % Neutrophils # (Auto) 5.9 TH/MM3 Lymphocytes # (Auto) 0.6 TH/MM3 Monocytes # (Auto) 0.7 TH/MM3 Eosinophils # (Auto) 0.0 TH/MM3 Basophils # (Auto) 0.0 TH/MM3 CBC Comment DIFF FINAL Differential Comment Blood Urea Nitrogen 13 MG/DL Creatinine 0.90 MG/DL Random Glucose 128 MG/DL Total Protein 5.3 GM/DL Albumin 2.7 GM/DL Calcium Level 8.8 MG/DL Phosphorus Level 2.6 MG/DL Magnesium Level 1.8 MG/DL Alkaline Phosphatase 34 U/L Aspartate Amino Transf (AST/SGOT) 15 U/L Alanine Aminotransferase (ALT/SGPT) 10 U/L Total Bilirubin 0.4 MG/DL Sodium Level 139 MEQ/L Potassium Level 4.0 MEQ/L Chloride Level 104 MEQ/L Carbon Dioxide Level 27.5 MEQ/L Anion Gap 8 MEQ/L Estimat Glomerular Filtration Rate 62 ML/MIN Free Thyroxine 1.08 NG/DL Thyroid Stimulating Hormone 3rd Gen 0.590 uIU/ML Imaging Last Impressions Hip X-Ray 01/15/18 0729 Signed Impressions: Service Date/Time: Monday, January 15, 2018 10:11 - CONCLUSION: Anatomic alignment. Adeel Steele MD Objective Remarks GENERAL: This is a well-nourished, well-developed patient, in no apparent distress. Seen sitting in the chair SKIN: No rashes, ecchymoses or lesions. Cool and dry. HEAD: Atraumatic. Normocephalic. No temporal or scalp tenderness. EYES: Pupils equal round and reactive. Extraocular motions intact. No scleral icterus. No injection or drainage. ENT: Nose without bleeding, purulent drainage or septal hematoma. Throat without erythema, tonsillar hypertrophy or exudate. Uvula midline. Airway patent. NECK: Trachea midline. No JVD or lymphadenopathy. Supple, nontender, no meningeal signs. CARDIOVASCULAR: Regular rate and rhythm without murmurs, gallops, or rubs. RESPIRATORY: Clear to auscultation. Breath sounds equal bilaterally. No wheezes , rales, or rhonchi. Decreased breath sounds bilaterally GASTROINTESTINAL: Abdomen soft, non-tender, nondistended. No hepato-splenomegaly , or palpable masses. No guarding. MUSCULOSKELETAL: Extremities without clubbing, cyanosis, or edema. No joint tenderness, effusion, or edema noted. No calf tenderness. Negative Homans sign bilaterally. Has an A-frame shape pillow strap to her legs NEUROLOGICAL: Awake and alert. Cranial nerves II through XII intact. Motor and sensory grossly within normal limits. 4 out of 5 muscle strength in all muscle groups. Normal speech. Insight and judgment is good Mood and behavior is appropriate Procedures DATE OF SURGERY: 01/15/2018 PREOPERATIVE DIAGNOSIS: Osteoarthritic degeneration, left hip. POSTOPERATIVE DIAGNOSIS: Osteoarthritic degeneration, left hip. SURGERY PERFORMED: Left total hip arthroplasty using Aesculap components, size 13 femur with standard neck and size 36 short ceramic head with a 36 E-liner, 52 cup and no cement utilized. SURGEON: Saulo Tellez MD COOK RESTAURANT(S): NEETA Aguero. ANESTHESIA: Spinal and 60 mL of Exparel for extra pain control. OPERATIVE PROCEDURE: The patient was brought to the Operating Room, where after successful induction of spinal anesthesia was placed on the operating room table in the right lateral decubitus position. The left hip, thigh and leg were prepped and draped in the usual manner. A posterolateral approach was then utilized by making an incision over the proximal portion of the femur lateral aspect, carried across the greater trochanter, carried posterior in a curved incision toward the buttock. The incision was carried down through the subcutaneous tissue, through the fibers of the tensor fascia live and gluteus lopez to expose the greater trochanteric bursa. This was then removed by sharp and blunt dissection. The hip was then internally rotated to expose the insertions of the short external rotators of the hip and were incised at their insertion into the greater trochanter and reflected posterior to protect the sciatic nerve. These were held with a Charnley retractor to better visualize the hip joint. The capsule was identified and removed by sharp dissection. The hip was then dislocated by internal rotation and flexion of the hip. The femoral calcar was then measured using the trial components for the appropriate length cut of the neck using an oscillating saw. After the cut was made the head was removed. The acetabulum was then approached and measured, the acetabulum reamed with the acetabular reamers. Next, the femoral calcar was approached by first inserting a canal finder followed by rigid reamers, followed by a cookie-cutter to the appropriate size, in this case being a #15. The broach was left in place and a planer used to plane the calcar to a smooth finish. The broach was then removed. The trial components were then inserted into place, the hip reduced, found to track smoothly with no evidence of subluxation or dislocation. All trial components were removed. The wound was irrigated copiously with antibiotic solution and Water Pik. The actual components were then inserted and impacted into place using Aesculap components, size 13 femur with standard neck and size 36 short ceramic head with a 36 E-liner, 52 cup and no cement utilized. The hip was reduced, found to track smoothly with no evidence of subluxation or dislocation. 60 cc of the mixture of Exparel, normal saline and 0.25% Marcaine plain were injected around the anterior hip joint, away from the sciatic nerve which was identified and protected throughout the procedure. The wound was irrigated copiously with antibiotic solution, meticulous hemostasis achieved. The capsule was then approximated using interrupted #1 Vicryl suture. The deep fascia was approximated with a running #2 Quill, the subcutaneous tissue approximated using interrupted and running 2-0 and 4-0 Monocryl suture and Prineo dressing applied to the wound followed by abduction pillow, brace and knee immobilizer. Estimated blood loss was 300 mL. No drain utilized. Sponge and suture counts were correct. The patient tolerated the procedure well and left the Operating Room in satisfactory condition. NEETA Aguero, was present during the entire procedure to include patient positioning and the procedure. The medical necessity of the nurse practitioner assistant floor covering printer was indicated in this case due to the surgical complexity of the case itself and during the surgical case the surgical scheduler was working at the back table while my neurosurgical nurse NEETA was directly assisting me. Melissa Tellez MD Medications and IVs Current Medications Lactated Ringer's 1,000 ml @ 30 mls/hr Q24H PRN IV SEE LABEL COMMENTS Last administered on 01/15/18at 06:31; Start 01/15/18 at 06:00; Stop 01/15/18 at 10:51 ; Status DC Sodium Chloride 500 ml @ 30 mls/hr [id number] PRN IV SEE LABEL COMMENTS; Start at 06:00; Stop 01/15/18 at 10:51; Status DC Povidone Iodine (Betadine 5% Antisepsis Kit) 1 applic ELECTRICAL POWER ENGINEER PRN EACH NARE SEE LABEL COMMENTS Last administered on 01/15/18at 06:31; Start 01/15/18 at 06:00 ; Stop 01/18/18 at 05:59 Chlorhexidine Gluconate (Chlorhexidine 2% Cloth) 3 pack ELECTRICAL POWER ENGINEER PRN TOPICAL SEE LABEL COMMENTS Last administered on 01/15/18at 06:31; Start 01/15/18 at 06:00 ; Stop 01/18/18 at 05:59 Insulin Human Regular (NovoLIN R INJ) See Protocol Table ... ELECTRICAL POWER ENGINEER PRN SQ SEE PROTOCOL TABLE; Start 01/15/18 at 06:00; Stop 01/18/18 at 05:59 Chlorhexidine Gluconate (Hibiclens 4% Top Soln) 1 applic ONCE TOPICAL Last administered on 01/15/18at 06:31; Start 01/15/18 at 06:00; Stop 01/18/18 at 05:59 Cefazolin Sodium/ Dextrose 50 ml @ 100 mls/hr ELECTRICAL POWER ENGINEER IV Last administered on 01/15/18at 08:21; Start 01/15/18 at 06:00; Stop 01/15/18 at 10:52; Status DC Tranexamic Acid 657 mg/Sodium Chloride 106.57 ml @ 200 mls/ hr ONCE IV Last administered on 01/15/18at 08:22; Start 01/15/18 at 07:30; Stop 01/16/18 at 13:30 Tranexamic Acid 657 mg/Sodium Chloride 106.57 ml @ 200 mls/ hr ONCE IV Last administered on 01/15/18at 11:25; Start 01/15/18 at 10:30; Stop 01/15/18 at 11:30 ; Status DC Vancomycin/Sodium Chloride 200 ml @ 200 mls/hr ELECTRICAL POWER ENGINEER IV Last administered on 01/15/18at 06:57; Start 01/15/18 at 06:00; Stop 01/18/18 at 05:59 Bupivacaine Liposome 20 ml/ Bupivacaine HCl 20 ml/Sodium Chloride 120 ml @ 240 mls/hr ONCE P-ARTICULR Last administered on 01/15/18at 09:11; Start 01/15/18 at 07:30; Stop 01/15/18 at 13:30; Status DC Cefazolin Sodium (Ancef Inj) 2,000 mg STK-MED ONCE .ROUTE Last administered on 01/15/18at 08:17; Start 01/15/18 at 06:25; Stop 01/15/18 at 06:26; Status DC Bupivacaine HCl/ Dextrose (Marcaine Spinal Inj) 2 ml STK-MED ONCE .ROUTE ; Start 01/15/18 at 07:12; Stop 01/15/18 at 07:13; Status DC Albuterol Sulfate (Albuterol Neb) 0.63 mg Q6HR NEB PRN NEB SHORTNESS OF BREATH ; Start 01/15/18 at 07:30 Pravastatin Sodium (Pravachol) 40 mg HS PO Last administered on 01/15/18at 20:39 ; Start 01/15/18 at 21:00 Temazepam (Restoril) 30 mg HS PRN PO INSOMNIA; Start 01/15/18 at 07:30; Stop at 08:34; Status DC Fenofibrate (Tricor) 145 mg DAILY PO Last administered on 01/16/18at 08:45; Start 01/15/18 at 13:00 Budesonide/ Formoterol Fumarate (Symbicort 160-4.5 Mcg Inh) 2 puff BID INH Last administered on 01/16/18at 08:47; Start 01/15/18 at 21:00 Lisinopril (Prinivil) 40 mg DAILY PO Last administered on 01/16/18at 08:48; Start 01/16/18 at 09:00 Metoprolol Succinate (Toprol Xl) 100 mg DAILY PO Last administered on at 08:48; Start 01/16/18 at 09:00 Non-Formulary Medication 1 cap DAILY PO ; Start 01/15/18 at 09:00; Stop at 09:00; Status DC Non-Formulary Medication 1 packet DAILY PRN .ROUTE CONSTIPATION; Start at 07:30; Stop 01/15/18 at 08:35; Status DC Lactated Ringer's 1,000 ml @ 80 mls/hr [id number] IV Last administered on at 20:38; Start 01/15/18 at 11:00 Cefazolin Sodium 1000 mg/Sodium Chloride 100 ml @ 200 mls/hr Q6H IV Last administered on 01/16/18at 02:16; Start 01/15/18 at 14:00; Stop 01/16/18 at 02:29 ; Status DC Miscellaneous Information (Post-op Orders (for Pharmacy)) STAT ONCE XX ; Start 01/15/18 at 09:55; Stop 01/15/18 at 10:46; Status DC Miscellaneous Information UNSCH PRN XX SEE LABEL COMMENTS; Start 01/15/18 at 07:30 Morphine Sulfate (Morphine Inj) 5 mg Q3H PRN IV PUSH Pain >7 when off BUILDING ENERGY CONSULTANT; Start 01/15/18 at 07:30 Acetaminophen/ Hydrocodone Bitart ([place] 7.5-325 Mg) 1 tab Q4H PRN PO PAIN LESS THAN 5 ON SCALE Last administered on 01/15/18at 21:51; Start 01/15/18 at 07: 30 Acetaminophen/ Hydrocodone Bitart ([place] 7.5-325 Mg) 2 tab Q4H PRN PO PAIN SCALE 5 TO 10 Last administered on 01/16/18at 08:44; Start 01/15/18 at 07:30 Acetaminophen (Tylenol) 650 mg Q6H PRN PO FEVER; Start 01/15/18 at 07:30 Tranexamic Acid / Sodium Chloride 100 ml @ 200 mls/hr UNSCH IV ; Start at 07:30; Stop 01/15/18 at 08:57; Status DC Multivitamins/ Minerals Therapeutic (Theragran M Tab) 1 tab BID PO ; Start 01/16 at 21:00; Stop 03/17/18 at 20:59 Ondansetron HCl (Zofran Inj) 4 mg Q6H PRN IVP NAUSEA OR VOMITING Last administered on 01/16/18at 10:14; Start 01/15/18 at 07:30 Docusate Sodium (Colace) 100 mg BID PO ; Start 01/16/18 at 21:00 Temazepam (Restoril) 15 mg HS PRN PO SLEEP; Start 01/15/18 at 07:30 Bisacodyl (Dulcolax Supp) 10 mg DAILY PRN RECTAL SEVERE CONSTIPATION Last administered on 01/16/18at 08:55; Start 01/15/18 at 07:30 Magnesium Hydroxide (Milk Of Magnesia Liq) 30 ml DAILY PRN PO MILD CONSTIPATION ; Start 01/15/18 at 07:30 Naloxone HCl (Narcan Inj) 0.4 mg UNSCH PRN IV PUSH RESPIRATORY RATE LESS THAN 10; Start 01/15/18 at 07:30 Apixaban (Eliquis) 2.5 mg BID PO Last administered on 01/16/18at 08:45; Start at 09:00 Propofol 50 ml @ As Directed STK-MED ONCE .ROUTE ; Start 01/15/18 at 07:33; Stop 01/15/18 at 07:34; Status DC Clonidine (Catapres) 0.1 mg Q4H PRN PO SBP>160, DBP>90; Start 01/15/18 at 09:15 Fentanyl Citrate (fentaNYL INJ) 100 mcg STK-MED ONCE .ROUTE ; Start 01/15/18 at 10:02; Stop 01/15/18 at 10:03; Status DC Midazolam HCl (Versed Inj) 2 mg STK-MED ONCE .ROUTE ; Start 01/15/18 at 10:02; Stop 01/15/18 at 10:03; Status DC Albuterol Sulfate (*ALBUTEROL NEB PERIprocedure ONLY) 2.5 mg STK-MED ONCE NEB Last administered on 01/15/18at 10:12; Start 01/15/18 at 10:09; Stop 01/15/18 at 10:10; Status DC Meperidine HCl (*DEMEROL INJ PERIprocedural ONLY) 25 mg STK-MED ONCE .ROUTE Last administered on 01/15/18at 10:20; Start 01/15/18 at 10:20; Stop 01/15/18 at 10:21; Status DC Miscellaneous Information ALL NURSING DEPARTME... UNSCH PRN .XX SEE LABEL COMMENTS; Start 01/15/18 at 09:55; Stop 01/16/18 at 09:56; Status DC Famotidine (Pepcid) 20 mg BID PO Last administered on 01/16/18at 08:45; Start at 21:00 A/P Problem List: (1) Status post total hip replacement, left ICD Code: Z96.642 - Presence of left artificial hip joint (2) History of lung cancer ICD Code: Z85.118 - Personal history of other malignant neoplasm of bronchus and lung (3) Osteoarthritis of left hip ICD Code: M16.12 - Unilateral primary osteoarthritis, left hip Assessment and Plan Status post left total hip replacement for severe osteoarthritis will defer to orthopedics for pain control and to them for anticoagulation COPD continue on oxygen and nebulized treatments depression and anxiety resume home medications LUNG CANCER -NEBS NEEDED- SMOKING CESSATION RECOMMENDED Hypertension resume home medications Hyperlipidemia resume home medications Constipation make sure she has medications for bowel We will check a.m. labs We will defer anticoagulation to orthopedics Continue on Pepcid for GI profile Discharge Planning PENDING CLEARANCE BY Adeel Tomas DO Jan 16, 2018 11:45
[2018-01-16 12:00] VITALS: BP 102/50; PULSE 70; RESP 17; TEMP 98.8; O2SAT 97
[2018-01-16] MEDS: ACETAMINOPHEN/HYDROcodone 325 MG/7.5 MG TAB PO PRN ×2 (14:14→20:02)
[2018-01-16 16:00] VITALS: BP 107/51; PULSE 69; RESP 17; TEMP 98.6; O2SAT 97
[2018-01-16 20:00] VITALS: BP 108/59; PULSE 95; RESP 17; TEMP 98.8; O2SAT 94
[2018-01-16] MEDS: DOCUSATE SODIUM 100 MG CAP PO SCH (20:01)
[2018-01-16] MEDS: PRAVASTATIN SOD 40 MG TAB PO SCH (20:01)
[2018-01-16] MEDS: MULTIVITAMINS/MINERALS THERAPEUTIC TAB PO SCH (20:02)
[2018-01-16 20:12] VITALS: O2SAT 97
[2018-01-17 03:14] VITALS: BP 101/51; PULSE 96; RESP 16; TEMP 97.7; O2SAT 92
[2018-01-17 07:40] VITALS: BP 108/51; PULSE 95; RESP 18; TEMP 100; O2SAT 91
--- NOTE | 2018-01-17 08:17 | PD.ORT.PN ---
Subjective Subjective Remarks Pt complaining of some pain today. Objective Vitals Vital Signs Date Time Temp Pulse Resp B/P (MAP) Pulse Ox O2 Delivery O2 Flow Rate FiO2 01/17/18 07:40 100.0 95 18 108/51 (70) 91 01/17/18 03:14 97.7 96 16 101/51 (68) 92 01/16/18 20:12 97 Nasal Cannula 2.00 01/16/18 20:00 98.8 95 17 108/59 (75) 94 01/16/18 16:00 98.6 69 17 107/51 (69) 97 01/16/18 12:00 98.8 70 17 102/50 (67) 97 01/16/18 09:05 97 Nasal Cannula 2.00 I/O 01/16/18 01/16/18 01/16/18 01/17/18 01/17/18 01/17/18 07:00 15:00 23:00 07:00 15:00 23:00 Intake Total 100 ml 480 ml 480 ml 360 ml Balance 100 ml 480 ml 480 ml 360 ml Intake Oral 480 ml 480 ml 360 ml IV Total 100 ml # Voids 1 3 2 # Bowel Movements 0 1 0 Result Diagram: 01/16/18 0625 01/16/18 0625 Imaging Last 48 hours Impressions Hip X-Ray 01/15/18 0729 Signed Impressions: Service Date/Time: Monday, January 15, 2018 10:11 - CONCLUSION: Anatomic alignment. Adeel Steele MD Objective Remarks In bed at present. NV intact to toes. No calf tenderness.Dressing dry and intact. Assessment & Plan Ortho Post Op Day #: 2 Problem List: Assessment and Plan Med management for lungs. Cont PT WB to tolerance. SNF soon. Melissa Moss MD Jan 17, 2018 08:17
[2018-01-17] MEDS: FENOFIBRATE 145 MG TAB PO SCH (08:21)
[2018-01-17] MEDS: MULTIVITAMINS/MINERALS THERAPEUTIC TAB PO SCH (08:21)
[2018-01-17] MEDS: APIXABAN 2.5 MG TABLET PO SCH (08:21)
[2018-01-17] MEDS: DOCUSATE SODIUM 100 MG CAP PO SCH (08:21)
[2018-01-17] MEDS: LISINOPRIL 20 MG TAB PO SCH (08:22)
[2018-01-17] MEDS: ACETAMINOPHEN/HYDROcodone 325 MG/7.5 MG TAB PO PRN ×2 (08:22→15:10)
[2018-01-17] MEDS: BUDESONIDE-FORMOTEROL 160/4.5 MCG INHALER INH SCH (08:23)
[2018-01-17] MEDS: METOPROLOL SUCCINATE 50 MG EXTENDED RELEASE TAB PO SCH (08:23)
[2018-01-17] MEDS: FAMOTIDINE 20 MG TAB PO SCH (08:23)
[2018-01-17] MEDS ORDERED: HYDR-3580 PO (08:24)
[2018-01-17 08:50] LABS: AUTOMATED NEUTROPHIL # 6.4 TH/MM3 (1.8-7.7); BASOPHIL % 0.2 % (0.0-2.0); EOSINOPHIL # 0.1 TH/MM3 (0-0.4); EOSINOPHIL % 0.7 % (0.0-4.0); HEMATOCRIT 28.4 % (35.0-46.0); HEMOGLOBIN 9.6 GM/DL (11.6-15.3); LYMPH % 8.9 % (9.0-44.0); LYMPHOCYTE # 0.7 TH/MM3 (1.0-4.8); MEAN CELL VOLUME 86.7 FL (80.0-100.0); MEAN CORPUSCULAR HEMOGLOBIN 29.4 PG (27.0-34.0); MEAN CORPUSCULAR HGB CONC 33.9 % (32.0-36.0); MONO % 9.1 % (0.0-8.0); MONOCYTE # 0.7 TH/MM3 (0-0.9); NEUT % 81.1 % (16.0-70.0); PLATELET COUNT 156 TH/MM3 (150-450); RED BLOOD COUNT 3.27 MIL/MM3 (4.00-5.30); RED CELL DISTRIBUTION WIDTH 12.5 % (11.6-17.2); WHITE BLOOD COUNT 7.9 TH/MM3 (4.0-11.0)
[2018-01-17 09:01] LABS: ALBUMIN 2.6 GM/DL (3.4-5.0); ALT (GPT) 12 U/L (10-53); AST (GOT) 26 U/L (15-37); BICARBONATE 29.9 MEQ/L (21.0-32.0); BLOOD UREA NITROGEN 10 MG/DL (7-18); CALCIUM 8.7 MG/DL (8.5-10.1); CHLORIDE 100 MEQ/L (98-107); CREATININE 0.72 MG/DL (0.50-1.00); GLOMERULAR FILTRATION RATE 80 ML/MIN (>89); GLUCOSE,RANDOM 96 MG/DL (74-106); MAGNESIUM 1.8 MG/DL (1.5-2.5); PHOSPHORUS 2.4 MG/DL (2.5-4.9); SODIUM (NA) 136 MEQ/L (136-145)
[2018-01-17 09:04] LABS: ALKALINE PHOSPHATASE 39 U/L (45-117); TOTAL BILIRUBIN ADULT 0.4 MG/DL (0.2-1.0); TOTAL PROTEIN 5.6 GM/DL (6.4-8.2)
--- NOTE | 2018-01-17 11:47 | HHI.PR ---
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 Patient has an extensive past medical history including lung cancer for which he underwent radiation as well as anxiety, chronic kidney disease stage II, COPD and hypoxemia. Also hypertension and hyperlipidemia and depression We have been asked to help regarding medical management throughout the admission We will check labs and be available for any other issues that may arise 01-16 SEEN IN ROOM DW CM AND RN AND PT WORKING WITH PT TODAY NO NEW COMPLAINTS HAS SOME PAIN AM LABS DW DR TELLEZ 01-17 WANTS TO GO TO SNF MAY NEED OXYGEN 2 L BY NC AT SNF DW RN AND PT AND CM OK TO DC TO SNF STOP SMOKING Objective Vitals Vital Signs Date Time Temp Pulse Resp B/P (MAP) Pulse Ox O2 Delivery O2 Flow Rate FiO2 01/17/18 09:22 20 01/17/18 07:40 100.0 95 18 108/51 (70) 91 01/17/18 03:14 97.7 96 16 101/51 (68) 92 01/16/18 20:12 97 Nasal Cannula 2.00 01/16/18 20:00 98.8 95 17 108/59 (75) 94 01/16/18 16:00 98.6 69 17 107/51 (69) 97 01/16/18 12:00 98.8 70 17 102/50 (67) 97 I/O 01/16/18 01/16/18 01/16/18 01/17/18 01/17/18 01/17/18 07:00 15:00 23:00 07:00 15:00 23:00 Intake Total 100 ml 480 ml 480 ml 360 ml Balance 100 ml 480 ml 480 ml 360 ml Intake Oral 480 ml 480 ml 360 ml IV Total 100 ml # Voids 1 3 2 # Bowel Movements 0 1 0 Result Diagram: 01/17/18 0823 01/17/18 0823 Other Results Laboratory Tests Test 01/16/18 06:25 01/17/18 08:23 White Blood Count 7.2 TH/MM3 7.9 TH/MM3 Red Blood Count 3.35 MIL/MM3 3.27 MIL/MM3 Hemoglobin 9.8 GM/DL 9.6 GM/DL Hematocrit 28.9 % 28.4 % Mean Corpuscular Volume 86.2 FL 86.7 FL Mean Corpuscular Hemoglobin 29.3 PG 29.4 PG Mean Corpuscular Hemoglobin Concent 34.0 % 33.9 % Red Cell Distribution Width 12.6 % 12.5 % Platelet Count 154 TH/MM3 156 TH/MM3 Mean Platelet Volume 9.1 FL 9.0 FL Neutrophils (%) (Auto) 81.1 % 81.1 % Lymphocytes (%) (Auto) 8.9 % 8.9 % Monocytes (%) (Auto) 9.2 % 9.1 % Eosinophils (%) (Auto) 0.5 % 0.7 % Basophils (%) (Auto) 0.3 % 0.2 % Neutrophils # (Auto) 5.9 TH/MM3 6.4 TH/MM3 Lymphocytes # (Auto) 0.6 TH/MM3 0.7 TH/MM3 Monocytes # (Auto) 0.7 TH/MM3 0.7 TH/MM3 Eosinophils # (Auto) 0.0 TH/MM3 0.1 TH/MM3 Basophils # (Auto) 0.0 TH/MM3 0.0 TH/MM3 CBC Comment DIFF FINAL DIFF FINAL Differential Comment Blood Urea Nitrogen 13 MG/DL 10 MG/DL Creatinine 0.90 MG/DL 0.72 MG/DL Random Glucose 128 MG/DL 96 MG/DL Total Protein 5.3 GM/DL 5.6 GM/DL Albumin 2.7 GM/DL 2.6 GM/DL Calcium Level 8.8 MG/DL 8.7 MG/DL Phosphorus Level 2.6 MG/DL 2.4 MG/DL Magnesium Level 1.8 MG/DL 1.8 MG/DL Alkaline Phosphatase 34 U/L 39 U/L Aspartate Amino Transf (AST/SGOT) 15 U/L 26 U/L Alanine Aminotransferase (ALT/SGPT) 10 U/L 12 U/L Total Bilirubin 0.4 MG/DL 0.4 MG/DL Sodium Level 139 MEQ/L 136 MEQ/L Potassium Level 4.0 MEQ/L 4.2 MEQ/L Chloride Level 104 MEQ/L 100 MEQ/L Carbon Dioxide Level 27.5 MEQ/L 29.9 MEQ/L Anion Gap 8 MEQ/L 6 MEQ/L Estimat Glomerular Filtration Rate 62 ML/MIN 80 ML/MIN Hemoglobin A1c 5.4 % Free Thyroxine 1.08 NG/DL Thyroid Stimulating Hormone 3rd Gen 0.590 uIU/ML Imaging Last Impressions Hip X-Ray 01/15/18 0729 Signed Impressions: Service Date/Time: Monday, January 15, 2018 10:11 - CONCLUSION: Anatomic alignment. Adeel Steele MD Objective Remarks GENERAL: This is a well-nourished, well-developed patient, in no apparent distress. Seen sitting in the chair SKIN: No rashes, ecchymoses or lesions. Cool and dry. HEAD: Atraumatic. Normocephalic. No temporal or scalp tenderness. EYES: Pupils equal round and reactive. Extraocular motions intact. No scleral icterus. No injection or drainage. ENT: Nose without bleeding, purulent drainage or septal hematoma. Throat without erythema, tonsillar hypertrophy or exudate. Uvula midline. Airway patent. NECK: Trachea midline. No JVD or lymphadenopathy. Supple, nontender, no meningeal signs. CARDIOVASCULAR: Regular rate and rhythm without murmurs, gallops, or rubs. RESPIRATORY: Clear to auscultation. Breath sounds equal bilaterally. No wheezes , rales, or rhonchi. Decreased breath sounds bilaterally GASTROINTESTINAL: Abdomen soft, non-tender, nondistended. No hepato-splenomegaly , or palpable masses. No guarding. MUSCULOSKELETAL: Extremities without clubbing, cyanosis, or edema. No joint tenderness, effusion, or edema noted. No calf tenderness. Negative Homans sign bilaterally. Has an A-frame shape pillow strap to her legs NEUROLOGICAL: Awake and alert. Cranial nerves II through XII intact. Motor and sensory grossly within normal limits. 4 out of 5 muscle strength in all muscle groups. Normal speech. Insight and judgment is good Mood and behavior is appropriate Procedures DATE OF SURGERY: 01/15/2018 PREOPERATIVE DIAGNOSIS: Osteoarthritic degeneration, left hip. POSTOPERATIVE DIAGNOSIS: Osteoarthritic degeneration, left hip. SURGERY PERFORMED: Left total hip arthroplasty using Aesculap components, size 13 femur with standard neck and size 36 short ceramic head with a 36 E-liner, 52 cup and no cement utilized. SURGEON: Saulo Tellez MD COAL SHOVELER(S): NEETA Aguero. ANESTHESIA: Spinal and 60 mL of Exparel for extra pain control. OPERATIVE PROCEDURE: The patient was brought to the Operating Room, where after successful induction of spinal anesthesia was placed on the operating room table in the right lateral decubitus position. The left hip, thigh and leg were prepped and draped in the usual manner. A posterolateral approach was then utilized by making an incision over the proximal portion of the femur lateral aspect, carried across the greater trochanter, carried posterior in a curved incision toward the buttock. The incision was carried down through the subcutaneous tissue, through the fibers of the tensor fascia live and gluteus lopez to expose the greater trochanteric bursa. This was then removed by sharp and blunt dissection. The hip was then internally rotated to expose the insertions of the short external rotators of the hip and were incised at their insertion into the greater trochanter and reflected posterior to protect the sciatic nerve. These were held with a Charnley retractor to better visualize the hip joint. The capsule was identified and removed by sharp dissection. The hip was then dislocated by internal rotation and flexion of the hip. The femoral calcar was then measured using the trial components for the appropriate length cut of the neck using an oscillating saw. After the cut was made the head was removed. The acetabulum was then approached and measured, the acetabulum reamed with the acetabular reamers. Next, the femoral calcar was approached by first inserting a canal finder followed by rigid reamers, followed by a cookie-cutter to the appropriate size, in this case being a #15. The broach was left in place and a planer used to plane the calcar to a smooth finish. The broach was then removed. The trial components were then inserted into place, the hip reduced, found to track smoothly with no evidence of subluxation or dislocation. All trial components were removed. The wound was irrigated copiously with antibiotic solution and Water Pik. The actual components were then inserted and impacted into place using Aesculap components, size 13 femur with standard neck and size 36 short ceramic head with a 36 E-liner, 52 cup and no cement utilized. The hip was reduced, found to track smoothly with no evidence of subluxation or dislocation. 60 cc of the mixture of Exparel, normal saline and 0.25% Marcaine plain were injected around the anterior hip joint, away from the sciatic nerve which was identified and protected throughout the procedure. The wound was irrigated copiously with antibiotic solution, meticulous hemostasis achieved. The capsule was then approximated using interrupted #1 Vicryl suture. The deep fascia was approximated with a running #2 Quill, the subcutaneous tissue approximated using interrupted and running 2-0 and 4-0 Monocryl suture and Prineo dressing applied to the wound followed by abduction pillow, brace and knee immobilizer. Estimated blood loss was 300 mL. No drain utilized. Sponge and suture counts were correct. The patient tolerated the procedure well and left the Operating Room in satisfactory condition. NEETA Aguero, was present during the entire procedure to include patient positioning and the procedure. The medical necessity of the nurse practitioner treasury assistant was indicated in this case due to the surgical complexity of the case itself and during the surgical case the biometrics technician was working at the back table while my assistant operator ASSEMBLY SUPERVISOR was directly assisting me. J. Saulo Tellez MD Medications and IVs Current Medications Lactated Ringer's 1,000 ml @ 30 mls/hr Q24H PRN IV SEE LABEL COMMENTS Last administered on 01/15/18at 06:31; Start 01/15/18 at 06:00; Stop 01/15/18 at 10:51 ; Status DC Sodium Chloride 500 ml @ 30 mls/hr [id number] PRN IV SEE LABEL COMMENTS; Start at 06:00; Stop 01/15/18 at 10:51; Status DC Povidone Iodine (Betadine 5% Antisepsis Kit) 1 applic DENTAL PATIENT COORDINATOR PRN EACH NARE SEE LABEL COMMENTS Last administered on 01/15/18at 06:31; Start 01/15/18 at 06:00 ; Stop 01/18/18 at 05:59 Chlorhexidine Gluconate (Chlorhexidine 2% Cloth) 3 pack DENTAL PATIENT COORDINATOR PRN TOPICAL SEE LABEL COMMENTS Last administered on 01/15/18at 06:31; Start 01/15/18 at 06:00 ; Stop 01/18/18 at 05:59 Insulin Human Regular (NovoLIN R INJ) See Protocol Table ... DENTAL PATIENT COORDINATOR PRN SQ SEE PROTOCOL TABLE; Start 01/15/18 at 06:00; Stop 01/18/18 at 05:59 Chlorhexidine Gluconate (Hibiclens 4% Top Soln) 1 applic ONCE TOPICAL Last administered on 01/15/18at 06:31; Start 01/15/18 at 06:00; Stop 01/18/18 at 05:59 Cefazolin Sodium/ Dextrose 50 ml @ 100 mls/hr DENTAL PATIENT COORDINATOR IV Last administered on 01/15/18at 08:21; Start 01/15/18 at 06:00; Stop 01/15/18 at 10:52; Status DC Tranexamic Acid 657 mg/Sodium Chloride 106.57 ml @ 200 mls/ hr ONCE IV Last administered on 01/15/18at 08:22; Start 01/15/18 at 07:30; Stop 01/16/18 at 13:30 ; Status DC Tranexamic Acid 657 mg/Sodium Chloride 106.57 ml @ 200 mls/ hr ONCE IV Last administered on 01/15/18at 11:25; Start 01/15/18 at 10:30; Stop 01/15/18 at 11:30 ; Status DC Vancomycin/Sodium Chloride 200 ml @ 200 mls/hr DENTAL PATIENT COORDINATOR IV Last administered on 01/15/18at 06:57; Start 01/15/18 at 06:00; Stop 01/18/18 at 05:59 Bupivacaine Liposome 20 ml/ Bupivacaine HCl 20 ml/Sodium Chloride 120 ml @ 240 mls/hr ONCE P-ARTICULR Last administered on 01/15/18at 09:11; Start 01/15/18 at 07:30; Stop 01/15/18 at 13:30; Status DC Cefazolin Sodium (Ancef Inj) 2,000 mg STK-MED ONCE .ROUTE Last administered on 01/15/18at 08:17; Start 01/15/18 at 06:25; Stop 01/15/18 at 06:26; Status DC Bupivacaine HCl/ Dextrose (Marcaine Spinal Inj) 2 ml STK-MED ONCE .ROUTE ; Start 01/15/18 at 07:12; Stop 01/15/18 at 07:13; Status DC Albuterol Sulfate (Albuterol Neb) 0.63 mg Q6HR NEB PRN NEB SHORTNESS OF BREATH ; Start 01/15/18 at 07:30 Pravastatin Sodium (Pravachol) 40 mg HS PO Last administered on 01/16/18at 20:01 ; Start 01/15/18 at 21:00 Temazepam (Restoril) 30 mg HS PRN PO INSOMNIA; Start 01/15/18 at 07:30; Stop at 08:34; Status DC Fenofibrate (Tricor) 145 mg DAILY PO Last administered on 01/17/18at 08:21; Start 01/15/18 at 13:00 Budesonide/ Formoterol Fumarate (Symbicort 160-4.5 Mcg Inh) 2 puff BID INH Last administered on 01/17/18at 08:23; Start 01/15/18 at 21:00 Lisinopril (Prinivil) 40 mg DAILY PO Last administered on 01/17/18at 08:22; Start 01/16/18 at 09:00 Metoprolol Succinate (Toprol Xl) 100 mg DAILY PO Last administered on at 08:23; Start 01/16/18 at 09:00 Non-Formulary Medication 1 cap DAILY PO ; Start 01/15/18 at 09:00; Stop at 09:00; Status DC Non-Formulary Medication 1 packet DAILY PRN .ROUTE CONSTIPATION; Start at 07:30; Stop 01/15/18 at 08:35; Status DC Lactated Ringer's 1,000 ml @ 80 mls/hr [id number] IV Last administered on at 20:38; Start 01/15/18 at 11:00 Cefazolin Sodium 1000 mg/Sodium Chloride 100 ml @ 200 mls/hr Q6H IV Last administered on 01/16/18at 02:16; Start 01/15/18 at 14:00; Stop 01/16/18 at 02:29 ; Status DC Miscellaneous Information (Post-op Orders (for Pharmacy)) STAT ONCE XX ; Start 01/15/18 at 09:55; Stop 01/15/18 at 10:46; Status DC Miscellaneous Information UNSCH PRN XX SEE LABEL COMMENTS; Start 01/15/18 at 07:30 Morphine Sulfate (Morphine Inj) 5 mg Q3H PRN IV PUSH Pain >7 when off RADIO PROGRAM CHECKER; Start 01/15/18 at 07:30 Acetaminophen/ Hydrocodone Bitart ([place] 7.5-325 Mg) 1 tab Q4H PRN PO PAIN LESS THAN 5 ON SCALE Last administered on 01/17/18at 08:22; Start 01/15/18 at 07: 30 Acetaminophen/ Hydrocodone Bitart ([place] 7.5-325 Mg) 2 tab Q4H PRN PO PAIN SCALE 5 TO 10 Last administered on 01/16/18at 08:44; Start 01/15/18 at 07:30 Acetaminophen (Tylenol) 650 mg Q6H PRN PO FEVER; Start 01/15/18 at 07:30 Tranexamic Acid / Sodium Chloride 100 ml @ 200 mls/hr UNSCH IV ; Start at 07:30; Stop 01/15/18 at 08:57; Status DC Multivitamins/ Minerals Therapeutic (Theragran M Tab) 1 tab BID PO Last administered on 01/17/18at 08:21; Start 01/16/18 at 21:00; Stop 03/17/18 at 20:59 Ondansetron HCl (Zofran Inj) 4 mg Q6H PRN IVP NAUSEA OR VOMITING Last administered on 01/16/18at 10:14; Start 01/15/18 at 07:30 Docusate Sodium (Colace) 100 mg BID PO Last administered on 01/17/18at 08:21; Start 01/16/18 at 21:00 Temazepam (Restoril) 15 mg HS PRN PO SLEEP; Start 01/15/18 at 07:30 Bisacodyl (Dulcolax Supp) 10 mg DAILY PRN RECTAL SEVERE CONSTIPATION Last administered on 01/16/18at 08:55; Start 01/15/18 at 07:30 Magnesium Hydroxide (Milk Of Magnesia Liq) 30 ml DAILY PRN PO MILD CONSTIPATION ; Start 01/15/18 at 07:30 Naloxone HCl (Narcan Inj) 0.4 mg UNSCH PRN IV PUSH RESPIRATORY RATE LESS THAN 10; Start 01/15/18 at 07:30 Apixaban (Eliquis) 2.5 mg BID PO Last administered on 01/17/18at 08:21; Start at 09:00 Propofol 50 ml @ As Directed STK-MED ONCE .ROUTE ; Start 01/15/18 at 07:33; Stop 01/15/18 at 07:34; Status DC Clonidine (Catapres) 0.1 mg Q4H PRN PO SBP>160, DBP>90; Start 01/15/18 at 09:15 Fentanyl Citrate (fentaNYL INJ) 100 mcg STK-MED ONCE .ROUTE ; Start 01/15/18 at 10:02; Stop 01/15/18 at 10:03; Status DC Midazolam HCl (Versed Inj) 2 mg STK-MED ONCE .ROUTE ; Start 01/15/18 at 10:02; Stop 01/15/18 at 10:03; Status DC Albuterol Sulfate (*ALBUTEROL NEB PERIprocedure ONLY) 2.5 mg STK-MED ONCE NEB Last administered on 01/15/18at 10:12; Start 01/15/18 at 10:09; Stop 01/15/18 at 10:10; Status DC Meperidine HCl (*DEMEROL INJ PERIprocedural ONLY) 25 mg STK-MED ONCE .ROUTE Last administered on 01/15/18at 10:20; Start 01/15/18 at 10:20; Stop 01/15/18 at 10:21; Status DC Miscellaneous Information ALL NURSING DEPARTME... UNSCH PRN .XX SEE LABEL COMMENTS; Start 01/15/18 at 09:55; Stop 01/16/18 at 09:56; Status DC Famotidine (Pepcid) 20 mg BID PO Last administered on 01/17/18at 08:23; Start at 21:00 A/P Problem List: (1) Status post total hip replacement, left ICD Code: Z96.642 - Presence of left artificial hip joint (2) History of lung cancer ICD Code: Z85.118 - Personal history of other malignant neoplasm of bronchus and lung (3) Osteoarthritis of left hip ICD Code: M16.12 - Unilateral primary osteoarthritis, left hip Assessment and Plan Status post left total hip replacement for severe osteoarthritis will defer to orthopedics for pain control and to them for anticoagulation COPD continue on oxygen and nebulized treatments depression and anxiety resume home medications LUNG CANCER -NEBS NEEDED- SMOKING CESSATION RECOMMENDED Hypertension resume home medications Hyperlipidemia resume home medications Constipation make sure she has medications for bowel We will check a.m. labs We will defer anticoagulation to orthopedics Continue on Pepcid for GI profile Discharge Planning PENDING CLEARANCE BY Adeel Tomas DO Jan 17, 2018 11:47
[2018-01-17] MEDS ORDERED: CLON.1 PO (11:49)
[2018-01-17] MEDS ORDERED: APIX2.5T PO (11:49)
[2018-01-17] MEDS ORDERED: SENN187 PO (11:49)
[2018-01-17 12:00] VITALS: BP 90/48; PULSE 75; RESP 18; TEMP 98.8; O2SAT 95
== END 2018-01-17 16:57 | DRG 470 ==
LOC: HSDI 05:21 → N06B 12:35
PROVIDERS: ADMIT Surgery; ATTEND Surgery
PROC: 0SRB0JA Replacement of Left Hip Joint with Synthetic Substitute, Uncemented, Open Approach (ICD-10-PCS; principal; 2018-01-15 07:30)
DX: M16.12 Unilateral primary osteoarthritis, left hip (principal); Z99.81 Dependence on supplemental oxygen; I12.9 Hypertensive chronic kidney disease with stage 1 through stage 4 chronic kidney disease, or unspecified chronic kidney disease; N18.2 Chronic kidney disease, stage 2 (mild); R09.02 Hypoxemia; I25.10 Atherosclerotic heart disease of native coronary artery without angina pectoris; K21.9 Gastro-esophageal reflux disease without esophagitis; J43.9 Emphysema, unspecified; E78.5 Hyperlipidemia, unspecified; K59.00 Constipation, unspecified; F41.9 Anxiety disorder, unspecified; F32.9 Major depressive disorder, single episode, unspecified; H91.90 Unspecified hearing loss, unspecified ear; Z96.651 Presence of right artificial knee joint; Z87.891 Personal history of nicotine dependence; Z85.118 Personal history of other malignant neoplasm of bronchus and lung
CPT/HCPCS: 73501; 80053; 83036; 83735; 84100; 84439; 84443; 85025; 86850; 86900; 86901; 88304; 88305; 88311; 93005; 94150; 94664; C1776; C9290; J0690; J2175; J2250; J2370; J2405; J3010; J3370; J7120; J7613; L1830